=== PATIENT | female | born 1995 | race African-American/Black ===

== ENCOUNTER 2016-10-04 21:05 | Emergency (ER) | payer OTHER ==
[2016-10-04 21:20] VITALS: BP 151/107
[2016-10-04] MEDS ORDERED: Bupivacaine 0.5% W/EPI SDV* 30 ML VIAL ONE (21:44)
[2016-10-04] MEDS ORDERED: traMADol TAB* 50 MG PO ONE (22:07)
--- NOTE | 2016-10-06 08:01 | ED ---
Isreal Hinojosa SooYoung, scribed for Lee Avery MD on 10/04/16 at 2136 . 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 Associated sx: pruiritic, mild pain with BM. It is not draining. She states she once had an abscess on the side of leg that drained normally. No PMHx of DM, Crohns, ulceritis. Has not taken any pain medications. Pt notes she was constipated last week and had been straining. - History of Current Complaint Chief Complaint: EDRashSkinAbscess Time Seen by Provider: 10/04/16 21:17 Stated Complaint: ABSCESS Hx Obtained From: Patient Onset/Duration: Still Present Timing: Constant Onset Severity: Moderate Current Severity: Moderate Pain Intensity: 7 Pain Scale Used: 0-10 Numeric Skin Location: Other: - alexandra anal Character: Pruritus, Painful - Allergy/Home Medications Allergies/Adverse Reactions: Allergies Allergy/AdvReac Type Severity Reaction Status Date / Time No Known Allergies Allergy Verified 10/04/16 21:10 PMH/Surg Hx/FS Hx/Imm Hx Previously Healthy: Yes Cardiovascular History: Denies: Hx Congestive Heart Failure Sensory History: Denies: Hx Legally Blind Opthamlomology History: Denies: Hx Legally Blind Infectious Disease History: No Infectious Disease History: Denies: Traveled Outside the [place] in Last 30 Days - Family History Known Family History: Positive: Hypertension - father Negative: Cardiac Disease, Diabetes - Social History Occupation: Student Lives: Alone Review of Systems Negative: Fever, Chills Negative: Erythema Negative: Sore Throat Negative: Chest Pain Negative: Shortness Of Breath, Cough Negative: Abdominal Pain, Vomiting, Nausea Positive: pain - alexandra-anal, other - pos: mild pain with BM. Negative: dysuria, hematuria Negative: Myalgia, Edema Negative: Rash Neurological: Other - neg: dizziness All Other Systems Reviewed And Are Negative: Yes Physical Exam - Summary Physical Exam Summary: Constitutional: Well-developed, Well-nourished, Alert. (-) Distressed Skin: Warm, Dry HENT: Normocephalic; Atraumatic Eyes: Conjunctiva normal Neck: Musculoskeletal ROM normal neck. (-) JVD, (-) Stridor, (-) Tracheal deviation Cardio: Rhythm regular, rate normal, Heart sounds normal; Intact distal pulses; The pedal pulses are 2+ and symmetric. Radial pulses are 2+ and symmetric. (-) Murmur Pulmonary/Chest wall: Effort normal. (-) Respiratory distress, (-) Wheezes, (-) Rales Abd: Soft, (-) Tenderness, (-) Distension, (-) Guarding, (-) Rebound Rectal: Thrombosed hemorrhoid at 12 o'clock position. It is tense. Musculoskeletal: (-) Edema Lymph: (-) Cervical adenopathy Neuro: Alert, Oriented x3 Psych: Mood and affect Normal Triage Information Reviewed: Yes Vital Signs On Initial Exam: Initial Vitals Temp Pulse Resp BP Pulse Ox 98.2 F 71 16 151/107 100 10/04/16 21:12 10/04/16 21:12 10/04/16 21:12 10/04/16 21:12 10/04/16 21:12 Vital Signs Reviewed: Yes Procedures - Incision and Drainage Site: thrombossed external hemorrhoid. Anesthesia: Local - 0.5% bupicaine with epi injected locally into thrombosed hemorrhoid Instrument(s): Scalpel Packing: Other - none Diagnostics - Vital Signs Vital Signs Temp Pulse Resp BP Pulse Ox 10/04/16 21:12 98.2 F 71 16 151/107 100 - Laboratory Lab Statement: Any lab studies that have been ordered have been reviewed, and results considered in the medical decision making process. 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 Associated sx: pruiritic, mild pain with BM. It is not draining. No PMHx of DM, Crohns, ulceritis. Has not taken any pain medication. Upon PE, pt has a thrombosed, tense hemorrhoid. Hemorrhoid was I&D, 3mm across triagular incision made; 5 pencil eraser sized clots were manually removed; no active bleeding. Pt feels relief. Nurse present for exam and procedure. - Diagnoses Provider Diagnoses: Thrombosed external hemorrhoid Discharge - Discharge Plan Condition: Stable Disposition: HOME Patient Education Materials: Thrombosed Hemorrhoid (ED) Referrals: Non Staff,Doctor [Primary Care Provider] - [facility] [place] [facility] [Outside] Additional Instructions: As we discussed, take warm baths, use witchhazel pads, and stool softeners. Please return to the ED if you experience new or worsening symptoms. The documentation as recorded by the Isreal sood SooYoung accurately reflects the service I personally performed and the decisions made by me, Lee Avery MD.
== END 2016-10-04 22:20 | disposition home or self-care (01) ==
LOC: ED 21:05
DX: K64.5 Perianal venous thrombosis (principal)
CPT/HCPCS: 99282

== ENCOUNTER 2018-01-10 16:40 | Emergency (ER) | payer SELFPAY ==
[2018-01-10 17:06] VITALS: BP 129/95
--- NOTE | 2018-01-10 17:12 | UC ---
Complaint Female HPI - HPI Summary HPI Summary: 22 y/o female presents to the urgent care c/o vaginal discharge which she thinks it is yeast infection since last Wilder 01/07/2018. Pt states a lot of itchiness w/ her vagina swelling and a burning sensation every time she urinates. Pain on urination is 2/10. Pt hasn't been sexually active for the past 2 years. She request STD screening. Pt denies lower back pain, pelvic pain , fever. flank pain, Hx of STD's, SOB, chest pain, abdominal pain, N/v/D. - History Of Current Complaint Chief Complaint: UCGU Stated Complaint: PERSONAL Time Seen by Provider: 01/10/18 17:10 Hx Obtained From: Patient Hx Last Menstrual Period: 01/07/18 ?: No Onset/Duration: Gradual Onset, Lasting Days - 4 days, Still Present Timing: Constant Severity Initially: Mild Severity Currently: Moderate Pain Intensity: 8 - burning w/ urination Pain Scale Used: 0-10 Numeric Character: Burning Aggravating Factor(s): Urination Alleviating Factor(s): Nothing Associated Signs And Symptoms: Positive: Vaginal Discharge, Genital Swelling. Negative: Fever, Back Pain - Risk Factors Ectopic Risk Factor: Negative - Allergies/Home Medications Allergies/Adverse Reactions: Allergies Allergy/AdvReac Type Severity Reaction Status Date / Time No Known Allergies Allergy Verified 01/10/18 17:06 PMH/Surg Hx/FS Hx/Imm Hx Previously Healthy: Yes - Pt denies PMHX - Surgical History Surgical History: None - Family History Known Family History: Positive: Hypertension - father, Respiratory Disease - asthma Negative: Cardiac Disease, Diabetes - Social History Occupation: Student Lives: With Family Alcohol Use: Occasionally Substance Use Type: Marijuana Smoking Status (MU): Never Smoked Tobacco Review of Systems All Other Systems Reviewed And Are Negative: Yes Constitutional: Positive: Negative Skin: Positive: Negative Eyes: Positive: Negative ENT: Positive: Negative Respiratory: Positive: Negative Cardiovascular: Positive: Negative Gastrointestinal: Positive: Negative Genitourinary: Positive: Vaginal/Penile Itching, Vaginal/Penile Discharge, Other - vaginal irritation Motor: Positive: Negative Neurovascular: Positive: Negative Musculoskeletal: Positive: Negative Neurological: Positive: Negative Psychological: Positive: Negative Is Patient Immunocompromised?: No Physical Exam - Summary Physical Exam Summary: Vital signs: reviewed General: well developed, well nourished female adolescent sitting in the examining table w/o any acute distress. Head: Normocephalic, no lesions. Eyes: PERRLA, EOM's full, conjunctiva clear, fundi grossly normal. Ears: EAC's clear, TM's normal. Nose: Mucosa normal, no obstruction. Throat: Clear, no exudates, no lesions. Neck: Supple, no masses, no thyromegaly, no bruits. Chest: Lungs clear, no rales, no rhonchi, no wheezes. Heart: RR, no murmurs, no rubs, no gallops. Abdomen: Soft, no tenderness, no masses, BS normal. Pelvic: I was framing mechanic by Bernice. External genitalia within normal limits. There is no lesions there is no masses noted. Speculum exam: The vaginal lamar are within normal limits w/ cottage cheese white vaginal discharge, no the lesions or rashes. The cervix is closed with no lesions or masses. There is no CMT's, and no adnexal masses. Sample sent to Lab for G/C and Affirm panel. Rectal: No lesions, no hemorrhoids, Back: Normal curvature, no tenderness. Extremities: FROM, no deformities, no edema, no erythema. Neuro: Physiological, no localizing findings. Skin: Normal, no rashes, no lesions noted. Triage Information Reviewed: Yes Vital Signs: Initial Vital Signs Temp 98.2 F 01/10/18 17:00 Pulse 80 01/10/18 17:00 Resp 18 01/10/18 17:00 BP 129/95 01/10/18 17:00 Pulse Ox 98 01/10/18 17:00 Complaint Female Dx - Course Course Of Treatment: 22 y/o female presents to the urgent care c/o vaginal discharge which she thinks it is yeast infection since last Wednesday01/07/2018. Pt states a lot of itchiness w/ her vagina swelling and a burning sensation every time she urinates. Pain on urination is 2/10. Pt hasn't been sexually active for the past 2 years. She request STD screening. Pt denies lower back pain, pelvic pain, fever. flank pain, Hx of STD's, SOB, chest pain, abdominal pain, N/v/D. Hx obtained. Pt w/ a white cottage cheese vaginal discharge on pelvic examination. Pt w/ probably Vulvovaginal candidiasis. Pt Rx Fluconazole PO and chlotrimazole topical cream to alleviate symptoms. Sample sent to Lab for Affirm panel , and GC / chlamydia. Pt declined HIV and other STDs screening. Pt will be notified of result. UA: trace 1+ leuk esterase. test:negative. Advised if not improvment of symptoms to return or f/u w/ COMMUNICATIONS REPRESENTATIVE. Pt understood and agreed with plan of care. - Differential Dx/Diagnosis Differential Diagnosis/HQI/PQRI: Cervicitis, Pelvic Inflammatory Disease, Sexually Transmitted Disease Provider Diagnoses: 1- Vulvovaginal candidiasis. 2- Screening for STD's. 3- Elelvated BP w/o Hx of HTN Discharge - Sign-Out/Discharge Documenting (check all that apply): Patient Departure - D/C home All imaging exams completed and their final reports reviewed: No Studies - Discharge Plan Condition: Stable Disposition: HOME Prescriptions: Clotrimazole 1% CREAM* [Clotrimazole 1%*] 1 applic TOPICAL BEDTIME #1 tube Fluconazole 150 MG (NF) [Diflucan 150 mg (NF)] 150 mg PO ONCE #1 tab Patient Education Materials: Yeast Infection (ED), Low-Sodium Diet (ED) Referrals: No Primary Care Phys,NOPCP [Primary Care Provider] - Additional Instructions: 1-[facility] test. 2- Please take Fluconazole PO and directed to alleviate symptoms. Aplly topical cream as directed in the irritated area. 3- Specimen were sent to lab, to screen for STI, if anything abnormal you will receive a call from us for further treatment. 4-If not improvement of symptoms please return to the urgent care or f/u with your COMMUNICATIONS REPRESENTATIVE for further treatment 5-Your BP is elevated today. please decrease salt in your diet, monitor BP and if it continues to be elevated please f/u with your PCP for further management - Billing Disposition and Condition Condition: STABLE Disposition: Home
--- NOTE | 2018-01-11 17:31 | UC ---
- Progress Note Progress Note: Positive for yeast and BV. She was treated for yeast at her OV. Please let her know of the BV as well - rx for flagyl 500mg BId sent. Discharge - Sign-Out/Discharge Documenting (check all that apply): Post-Discharge Follow Up All imaging exams completed and their final reports reviewed: No Studies - Discharge Plan Condition: Stable Disposition: HOME Prescriptions: Clotrimazole 1% CREAM* [Clotrimazole 1%*] 1 applic TOPICAL BEDTIME #1 tube Fluconazole 150 MG (NF) [Diflucan 150 mg (NF)] 150 mg PO ONCE #1 tab metroNIDAZOLE [Flagyl] 500 mg PO BID #14 tablet Patient Education Materials: Yeast Infection (ED), Low-Sodium Diet (ED) Referrals: No Primary Care Phys,NOPCP [Primary Care Provider] - Additional Instructions: 1-[facility] you [facility] test. 2- Please take Fluconazole PO and directed to alleviate symptoms. Aplly topical cream as directed in the irritated area. 3- Specimen were sent to lab, to screen for STI, if anything abnormal you will receive a call from us for further treatment. 4-If not improvement of symptoms please return to the urgent care or f/u with your SUBSEA ENGINEER for further treatment 5-Your BP is elevated today. please decrease salt in your diet, monitor BP and if it continues to be elevated please f/u with your PCP for further management - Billing Disposition and Condition Condition: STABLE Disposition: Home
--- NOTE | 2018-01-12 16:20 | UC ---
- Progress Note Progress Note: 01/12/2018 GC/Chlamydia: negative Trichomonas vaginalis: negative No change Brenda Azevedo PA-C Discharge - Sign-Out/Discharge Documenting (check all that apply): Patient Departure - D/c home All imaging exams completed and their final reports reviewed: No Studies - Discharge Plan Condition: Stable Disposition: HOME Prescriptions: Clotrimazole 1% CREAM* [Clotrimazole 1%*] 1 applic TOPICAL BEDTIME #1 tube Fluconazole 150 MG (NF) [Diflucan 150 mg (NF)] 150 mg PO ONCE #1 tab metroNIDAZOLE [Flagyl] 500 mg PO BID #14 tablet Patient Education Materials: Yeast Infection (ED), Low-Sodium Diet (ED) Referrals: No Primary Care Phys,NOPCP [Primary Care Provider] - Additional Instructions: 1-[facility] test. 2- Please take Fluconazole PO and directed to alleviate symptoms. Aplly topical cream as directed in the irritated area. 3- Specimen were sent to lab, to screen for STI, if anything abnormal you will receive a call from us for further treatment. 4-If not improvement of symptoms please return to the urgent care or f/u with your PADDER CUSHION for further treatment 5-Your BP is elevated today. please decrease salt in your diet, monitor BP and if it continues to be elevated please f/u with your PCP for further management - Billing Disposition and Condition Condition: STABLE Disposition: Home
--- NOTE | 2018-01-12 17:21 | UC ---
- Progress Note Progress Note: 01/12/2018 Urinalysis:WNL, no growth No change Brenda Silva PA-C Discharge - Sign-Out/Discharge Documenting (check all that apply): Patient Departure - D/C home All imaging exams completed and their final reports reviewed: No Studies - Discharge Plan Condition: Stable Disposition: HOME Prescriptions: Clotrimazole 1% CREAM* [Clotrimazole 1%*] 1 applic TOPICAL BEDTIME #1 tube Fluconazole 150 MG (NF) [Diflucan 150 mg (NF)] 150 mg PO ONCE #1 tab metroNIDAZOLE [Flagyl] 500 mg PO BID #14 tablet Patient Education Materials: Yeast Infection (ED), Low-Sodium Diet (ED) Referrals: No Primary Care Phys,NOPCP [Primary Care Provider] - Additional Instructions: 1-[facility] test. 2- Please take Fluconazole PO and directed to alleviate symptoms. Aplly topical cream as directed in the irritated area. 3- Specimen were sent to lab, to screen for STI, if anything abnormal you will receive a call from us for further treatment. 4-If not improvement of symptoms please return to the urgent care or f/u with your INFORMATION SYSTEMS CONSULTANT for further treatment 5-Your BP is elevated today. please decrease salt in your diet, monitor BP and if it continues to be elevated please f/u with your PCP for further management - Billing Disposition and Condition Condition: STABLE Disposition: Home
== END 2018-01-10 18:02 | disposition home or self-care (01) ==
LOC: UCEAST 16:40
DX: Z11.3 Encounter for screening for infections with a predominantly sexual mode of transmission (principal); B37.3 Candidiasis of vulva and vagina; R03.0 Elevated blood-pressure reading, without diagnosis of hypertension
CPT/HCPCS: 81003; 84702; 87086; 87480; 87491; 87510; 87591; 87661; 99212; G0463

== ENCOUNTER 2018-02-04 14:44 | Emergency (ER) | payer SELFPAY ==
[2018-02-04] MEDS ORDERED: Pseudoephedrine TAB* 60 MG PO ONE (15:46)
--- NOTE | 2018-02-04 16:25 | ED ---
Throat Pain/Nasal Congestion - HPI Summary HPI Summary: Alternating ear pain past week. Was left, now right - pressure, congestion, sharp at times. Intermittent nasal congestion - denies ST, swelling, ROMERO, sneezing, coughing, fever, chills, N/V/D, ab rash. Tried ibuprofen and acetaminophen w/o relief. Home temp is very hot - roommate turns it up to "90F" - dry. No h/o strep, mono. H/o OM as a child - no myringotomies and denies allergies. - History of Current Complaint Chief Complaint: EDEarPain Time Seen by Provider: 02/04/18 14:54 Hx Obtained From: Patient - Allergies/Home Medications Allergies/Adverse Reactions: Allergies Allergy/AdvReac Type Severity Reaction Status Date / Time No Known Allergies Allergy Verified 01/10/18 17:06 Home Medications: Home Medications Cran/C/B.coag/Fos/L.acid/L.rha [Probiotic Plus & Cranberry Cap] 1 tab PO DAILY 02/04/18 [History Confirmed 02/04/18] PMH/Surg Hx/FS Hx/Imm Hx Previously Healthy: Yes Cardiovascular History: Denies: Hx Congestive Heart Failure Respiratory History: Denies: Hx Asthma Sensory History: Denies: Hx Legally Blind Opthamlomology History: Denies: Hx Legally Blind EENT History: Reports: Other - OM as child Infectious Disease History: No Infectious Disease History: Denies: Traveled Outside the [place] in Last 30 Days - Family History Known Family History: Positive: Hypertension - father, Respiratory Disease - asthma Negative: Cardiac Disease, Diabetes - Social History Occupation: Student Lives: Dormitory/Roommates Alcohol Use: Occasionally Substance Use Type: Reports: Marijuana Hx Tobacco Use: No Smoking Status (MU): Never Smoked Tobacco Review of Systems Constitutional: Negative Eyes: Negative Positive: Ear Ache, Nasal Discharge Cardiovascular: Negative Respiratory: Negative Gastrointestinal: Negative Positive: no symptoms reported Musculoskeletal: Negative Skin: Negative Neurological: Negative Psychological: Normal All Other Systems Reviewed And Are Negative: Yes Physical Exam Triage Information Reviewed: Yes Vital Signs On Initial Exam: Initial Vitals Temp Pulse Resp BP Pulse Ox 97.2 F 78 18 140/89 98 02/04/18 14:45 02/04/18 14:45 02/04/18 14:45 02/04/18 14:45 02/04/18 14:45 Vital Signs Reviewed: Yes Appearance: Positive: Well-Appearing, No Pain Distress, Well-Nourished Skin: Positive: Warm, Skin Color Reflects Adequate Perfusion, Dry - no rash Head/Face: Positive: Normal Head/Face Inspection Eyes: Positive: Normal, EOMI, Conjunctiva Clear. Negative: Conjunctiva Inflammed, Discharge ENT: Positive: Hearing grossly normal, Pharyngeal erythema - cobblestoning, Nasal congestion, TM bulging - very mild B/L - TM's clear -no erythema, no vesicles, no lesions, NTTP, no otorrhea, Uvula midline. Negative: Tonsillar swelling, Tonsillar exudate, Sinus tenderness Neck: Positive: Supple, Nontender, No Lymphadenopathy Respiratory/Lung Sounds: Positive: Clear to Auscultation, Breath Sounds Present. Negative: Rales, Rhonchi, Stridor, Tracheal Deviation, Wheezes Cardiovascular: Positive: Normal, RRR. Negative: Murmur, Rub Abdomen Description: Positive: Nontender, No Organomegaly, Soft Bowel Sounds: Positive: Present Musculoskeletal: Positive: Normal, Strength/ROM Intact Neurological: Positive: Normal, Sensory/Motor Intact, Alert, Oriented to Person Place, Time, CN Intact II-III Psychiatric: Positive: Normal Diagnostics - Vital Signs Vital Signs Temp Pulse Resp BP Pulse Ox 02/04/18 14:45 97.2 F 78 18 140/89 98 - Laboratory Lab Statement: Any lab studies that have been ordered have been reviewed, and results considered in the medical decision making process. EENT Course/Dx - Diagnoses Provider Diagnoses: Eustachian tube dysfunction Discharge - Sign-Out/Discharge Documenting (check all that apply): Patient Departure - Discharge Plan Condition: Stable Disposition: HOME Patient Education Materials: Earache (ED) Referrals: [facility] [Outside] [facility] [place] [facility] [Outside] Additional Instructions: You appear to have eustachian tube dysfunction which can lead to unilateral or bilateral ear pain and pressure. It is important that you support the structures around your eustchian tubes to allow them to open and drain in an effort to alleviate your ear pain. This may be done through the remedies listed below as well as trying Sudafed, a decongestant. You were given 1 dose of Sudafed here today. If you feel this was helpful, you may obtain more through the pharmacy [id number]. Try to take in the morning with food as it may make you feel energetic and cause difficulty sleeping if he take too close to bedtime. Do not take with caffeine. Try the following remedies: Nasal wash (netti pot or saline spray) & salt water throat gargles 2 x day Drink you body weight in ounces of water every day Sleep 8+ hours per night Avoid Dairy and sugar Hot herbal/decaf tea with lemon & honey Chicken broth (preferably organic, free range chicken) Humidifier in house, but especially near bed at night Keep home temperature at 68F or less to reduce dryness Use cough drops/throat lozenges Try a facial steam with or without eucalyptus essential oil or Prieto's Vapor rub for congestion Avoid smoke, candles, perfumes, colognes, scented soaps/detergents , air fresheners and cleaning chemicals as these can cause airway irritation and trigger coughing Start multivitamin during the winter months to support immune system *If you continue to have issues, you may follow-up with [facility], a transitional PCP service here at the hospital. Contact information provided here. Call today to schedule an appointment. *If you develop difficulty breathing or swallowing, severe headache, fever, neck stiffness, return to the ED - Billing Disposition and Condition Condition: STABLE Disposition: Home
[2018-02-04 16:30] VITALS: BP 146/106
== END 2018-02-04 16:29 | disposition home or self-care (01) ==
LOC: ED 14:44
DX: H69.93 Unspecified Eustachian tube disorder, bilateral (principal)
CPT/HCPCS: 99281; A9270-GY

== ENCOUNTER 2018-03-06 12:33 | Emergency (ER) | payer SELFPAY ==
[2018-03-06 12:41] VITALS: BP 154/96
--- NOTE | 2018-03-06 12:52 | UC ---
Abdominal Pain Female HPI - HPI Summary HPI Summary: awoke with midepigastric ruq pain this morning-has not vomited but is not hungry ---never had similar pain no recent alcohol - History of Current Complaint Chief Complaint: UCAbdominalPain Stated Complaint: ABD PAIN Time Seen by Provider: 03/06/18 12:37 Hx Obtained From: Patient Hx Last Menstrual Period: 02/25/18 ?: No Onset/Duration: Sudden Onset, Lasting Hours Timing: Constant Pain Intensity: 9 Pain Scale Used: 0-10 Numeric Location: Discrete At: RUQ, Epigastric Radiates: Yes Radiates to: Back Character: Aching, Burning Aggravating Factor(s): Nothing Alleviating Factor(s): Nothing Associated Signs and Symptoms: Positive: Back Pain, Decreased Appetite Allergies/Adverse Reactions: Allergies Allergy/AdvReac Type Severity Reaction Status Date / Time No Known Allergies Allergy Verified 03/06/18 12:40 PMH/Surg Hx/FS Hx/Imm Hx Previously Healthy: Yes - Surgical History Surgical History: None - Family History Known Family History: Positive: Hypertension - father, Respiratory Disease - asthma Negative: Cardiac Disease, Diabetes - Social History Occupation: Employed Part-time Lives: Dormitory/Roommates Alcohol Use: Occasionally Substance Use Type: Marijuana Smoking Status (MU): Never Smoked Tobacco Review of Systems All Other Systems Reviewed And Are Negative: Yes Constitutional: Positive: Fever - subjective Skin: Positive: Negative Eyes: Positive: Negative ENT: Positive: Negative Respiratory: Positive: Negative Cardiovascular: Positive: Negative Gastrointestinal: Positive: Abdominal Pain, Nausea Genitourinary: Positive: Negative Motor: Positive: Negative Neurovascular: Positive: Negative Musculoskeletal: Positive: Negative Neurological: Positive: Negative Psychological: Positive: Negative Is Patient Immunocompromised?: No Physical Exam Triage Information Reviewed: Yes Appearance: Well-Nourished, Ill-Appearing, Pain Distress Vital Signs: Initial Vital Signs Temp 99.5 F 03/06/18 12:37 Pulse 82 03/06/18 12:37 Resp 20 03/06/18 12:37 BP 154/96 03/06/18 12:37 Vital Signs Reviewed: Yes Eye Exam: Normal Eyes: Positive: Conjunctiva Clear ENT Exam: Normal ENT: Positive: Normal ENT inspection, Hearing grossly normal. Negative: Nasal congestion, Trismus, Muffled voice, Hoarse voice Dental Exam: Normal Neck exam: Normal Neck: Positive: Supple, Nontender Respiratory Exam: Normal Respiratory: Positive: Chest non-tender, No respiratory distress, No accessory muscle use Cardiovascular Exam: Normal Cardiovascular: Positive: RRR, Pulses Normal, Brisk Capillary Refill Abdominal Exam: Other Abdomen Description: Positive: No Organomegaly, Soft, Other: - RUQ pain rediating in to back. Negative: CVA Tenderness (R), CVA Tenderness (L), Distended, Guarding, Hepatomegaly, McBurney's Point Tenderness, Peritoneal Signs , Pulsatile Mass Bowel Sounds: Positive: Present Musculoskeletal Exam: Normal Musculoskeletal: Positive: Strength Intact, ROM Intact, No Edema Neurological Exam: Normal Neurological: Positive: Alert, Muscle Tone Normal Psychological Exam: Normal Skin Exam: Normal Diagnostics - Laboratory Diagnostic Studies Completed/Ordered: ua-+3 leukoesterace, no blood, u pre (-) Abd Pain Female Course/Dx - Course Course Of Treatment: ivf zofran morpine, npo to [facility] [place] via ambulance-- - Differential Dx/Diagnosis Provider Diagnosis: Abdominal pain, acute, right upper quadrant Discharge - Sign-Out/Discharge Documenting (check all that apply): Patient Departure All imaging exams completed and their final reports reviewed: No Studies - Discharge Plan Condition: Fair Disposition: TRANS HIGHER LVL OF CARE FAC Referrals: No Primary Care Phys,NOPCP [Primary Care Provider] - - Billing Disposition and Condition Condition: FAIR Disposition: Trans Higher Lvl of Care Fac
[2018-03-06] MEDS ORDERED: Ondansetron INJ* 2 MG/ML VIAL IV ONE (12:53)
[2018-03-06] MEDS ORDERED: Morphine VIAL* 10 MG/ML 1 ML VIAL IV ONE (12:53)
[2018-03-06] MEDS ORDERED: NS 0.9% 1000 ML* 1,000 ML IV SCH (13:00)
== END 2018-03-06 13:20 | disposition short-term general hospital (02) ==
LOC: UCEAST 12:33
DX: R10.11 Right upper quadrant pain (principal)
CPT/HCPCS: 81003; 84702; 87086; 96374; 96376; 99213; G0463; J2270; J2405

== ENCOUNTER 2018-03-06 13:41 | Emergency (ER) | payer SELFPAY ==
[2018-03-06] MEDS ORDERED: Al Hydrox/Mg Hydrox/Simet LIQ* 30 ML UDC PO ONE (14:02)
[2018-03-06] MEDS ORDERED: Famotidine IV* 10 MG/ML 2 ML (20 mg) IV SLOW PU ONE (14:02)
[2018-03-06 14:53] LABS: Hematocrit 32 % (35-47); Hemoglobin 10.2 g/dl (12.0-16.0); Mean Corpuscular HGB Conc 32 g/dl (31-36); Mean Corpuscular Hemoglobin 22 pg (27-31); Mean Corpuscular Volume 70 fL (80-97); Mean Platelet Volume 8.9 fL (7.4-10.4); Platelet Count 201 10^3/ul (150-450); Red Blood Count 4.57 10^6/ul (4.00-5.40); Red Cell Distribution Width 19 % (10.5-15); White Blood Count 7.8 10^3/ul (3.5-10.8)
[2018-03-06 15:04] LABS: ALT 12 U/L (7-52); AST 15 U/L (13-39); Albumin 3.9 g/dL (3.2-5.2); Albumin/Globulin Ratio 1.2 (1-3); Alkaline Phosphatase 63 U/L (34-104); Amylase 63 U/L (29-103); Anion Gap 6 mmol/L (2-11); BUN/Creatinine Ratio 7.7 (8-20); Blood Urea Nitrogen 5 mg/dL (6-24); C Reactive Protein 7.74 mg/L (<8.01); CO2 Carbon Dioxide 26 mmol/L (22-32); Calcium 8.9 mg/dL (8.6-10.3); Chloride 107 mmol/L (101-111); Globulin 3.3 g/dL (2-4); Glucose 96 mg/dL (70-100); Magnesium 1.9 mg/dL (1.9-2.7); Potassium 3.5 mmol/L (3.5-5.0); Sodium 139 mmol/L (135-145); Total Protein 7.2 g/dL (6.4-8.9)
[2018-03-06 15:09] LABS: HCG Pregnancy < 0.60 mIU/mL
[2018-03-06 15:34] LABS: ABS Basophils 0.1 10^3/ul (0-0.2); ABS Eosinophils 0 10^3/ul (0-0.6); ABS Lymphocytes 1.1 10^3/ul (1.0-4.8); ABS Monocytes 0.5 10^3/ul (0-0.8); ABS Neutrophils 6.1 10^3/ul (1.5-7.7); ABS Nucleated RBC 0 10^3/ul; Eosinophil % 0.4 %; Lymphocyte % 14.6 %; Nucleated Red Blood Cells % 0
[2018-03-06 15:51] VITALS: BP 124/101
--- NOTE | 2018-03-06 16:14 | ED ---
Abdominal Pain/Female - HPI Summary HPI Summary: Patient is a 23-year-old female with no significant PMH presenting to the ED with acute onset of mid epigastric pain since 4 AM. She states she ate some cereal at 1 AM just prior to going to bed. Pain is currently rated a 5/10, aching and burning. She has never had this before. She denies any abdominal surgeries. Denies any urinary symptoms, abdominal pain. Otherwise, back pain, nausea, vomiting, diarrhea, constipation. She takes no medications. Denies any allergies. - History of Current Complaint Chief Complaint: EDAbdPain Stated Complaint: ABD PAIN Time Seen by Provider: 03/06/18 13:54 Hx Obtained From: Patient Hx Last Menstrual Period: 02/25/18 ?: No Onset/Duration: Sudden Onset Timing: Constant Severity Initially: Moderate Severity Currently: Moderate Pain Intensity: 0 Pain Scale Used: 0-10 Numeric Location: Epigastric Radiates: No Character: Burning, Other: - aching Alleviating Factor(s): Nothing Associated Signs and Symptoms: Positive: Negative - Risk Factors Ectopic Risk Factor: Negative Ovarian Torsion Risk Factor: Negative Allergies/Adverse Reactions: Allergies Allergy/AdvReac Type Severity Reaction Status Date / Time No Known Allergies Allergy Verified 03/06/18 12:40 PMH/Surg Hx/FS Hx/Imm Hx Previously Healthy: Yes Endocrine/Hematology History: Denies: Hx Diabetes, Hx Thyroid Disease Cardiovascular History: Denies: Hx Congestive Heart Failure, Hx Hypertension Respiratory History: Denies: Hx Asthma, Hx Chronic Obstructive Pulmonary Disease (COPD) GI History: Denies: Hx Ulcer Sensory History: Denies: Hx Legally Blind Opthamlomology History: Denies: Hx Legally Blind - Immunization History Hx Pertussis Vaccination: No Immunizations Up to Date: Yes Infectious Disease History: No Infectious Disease History: Denies: Hx Hepatitis, Hx Human Immunodeficiency Virus (HIV), Traveled Outside the [place] in Last 30 Days - Family History Known Family History: Positive: Hypertension - father, Respiratory Disease - asthma Negative: Cardiac Disease, Diabetes - Social History Occupation: Employed Full-time Lives: With Family Alcohol Use: Occasionally Hx Substance Use: Yes Substance Use Type: Reports: Marijuana Hx Tobacco Use: No Smoking Status (MU): Never Smoked Tobacco Review of Systems Negative: Fever, Chills, Fatigue, Skin Diaphoresis Negative: Palpitations, Chest Pain Negative: Shortness Of Breath, Cough Positive: Abdominal Pain - epigastric tenderness. Negative: Vomiting, Diarrhea Negative: Arthralgia, Myalgia Skin: Negative Neurological: Negative All Other Systems Reviewed And Are Negative: Yes Physical Exam Triage Information Reviewed: Yes Vital Signs On Initial Exam: Initial Vitals Temp Pulse Resp BP Pulse Ox 97.8 F 78 19 146/105 100 03/06/18 13:42 03/06/18 13:42 03/06/18 13:42 03/06/18 13:42 03/06/18 13:42 Vital Signs Reviewed: Yes Appearance: Positive: Well-Appearing, Well-Nourished Skin: Positive: Warm, Skin Color Reflects Adequate Perfusion Head/Face: Positive: Normal Head/Face Inspection Eyes: Positive: EOMI, LEBRON, Conjunctiva Clear Neck: Positive: Supple, No Lymphadenopathy Respiratory/Lung Sounds: Positive: Clear to Auscultation, Breath Sounds Present Cardiovascular: Positive: RRR, Pulses are Symmetrical in both Upper and Lower Extremities Musculoskeletal: Positive: Normal - no, Strength/ROM Intact Neurological: Positive: Speech Normal Psychiatric: Positive: Normal, Affect/Mood Appropriate AVPU Assessment: Alert Diagnostics - Vital Signs Vital Signs Temp Pulse Resp BP Pulse Ox 03/06/18 15:48 97 F 77 20 124/101 100 03/06/18 14:46 75 20 146/95 100 03/06/18 14:22 97.8 F 59 16 122/87 100 03/06/18 14:16 72 18 132/99 100 03/06/18 13:46 70 18 149/105 100 03/06/18 13:42 97.8 F 78 19 146/105 100 - Laboratory Lab Results: Lab Results 03/06/18 03/06/18 03/06/18 Range/Units 13:35 13:35 13:35 WBC 7.8 (3.5-10.8) 10^3/ul RBC 4.57 (4.00-5.40) 10^6/ul Hgb 10.2 L (12.0-16.0) g/dl Hct 32 L (35-47) % MCV 70 L (80-97) fL MCH 22 L (27-31) pg MCHC 32 (31-36) g/dl RDW 19 H (10.5-15) % Plt Count 201 (150-450) 10^3/ul MPV 8.9 (7.4-10.4) fL Neut % (Auto) 77.4 % Lymph % (Auto) 14.6 % [place] % (Auto) 6.9 % Eos % (Auto) 0.4 % Baso % (Auto) 0.7 % Absolute Neuts (auto) 6.1 (1.5-7.7) 10^3/ul Absolute Lymphs (auto) 1.1 (1.0-4.8) 10^3/ul Absolute Monos (auto) 0.5 (0-0.8) 10^3/ul Absolute Eos (auto) 0 (0-0.6) 10^3/ul Absolute Basos (auto) 0.1 (0-0.2) 10^3/ul Absolute Nucleated RBC 0 10^3/ul Nucleated RBC % 0 Hypochromasia 1+ Anisocytosis 1+ Sodium 139 (135-145) mmol/L Potassium 3.5 (3.5-5.0) mmol/L Chloride 107 (101-111) mmol/L Carbon Dioxide 26 (22-32) mmol/L Anion Gap 6 (2-11) mmol/L BUN 5 L (6-24) mg/dL Creatinine 0.65 (0.51-0.95) mg/dL Est GFR ( Amer) 137.9 (>60) Est GFR (Non-Af Amer) 114.0 (>60) BUN/Creatinine Ratio 7.7 L (8-20) Glucose 96 (70-100) mg/dL Lactic Acid 0.6 (0.5-2.0) mmol/L Calcium 8.9 (8.6-10.3) mg/dL Magnesium 1.9 (1.9-2.7) mg/dL Total Bilirubin 0.30 (0.2-1.0) mg/dL AST 15 (13-39) U/L ALT 12 (7-52) U/L Alkaline Phosphatase 63 (34-104) U/L C-Reactive Protein 7.74 (<8.01) mg/L Total Protein 7.2 (6.4-8.9) g/dL Albumin 3.9 (3.2-5.2) g/dL Globulin 3.3 (2-4) g/dL Albumin/Globulin Ratio 1.2 (1-3) Amylase 63 (29-103) U/L Lipase < 10 L (11.0-82.0) U/L Beta HCG, Quant < 0.60 mIU/mL Result Diagrams: 03/06/18 13:35 03/06/18 13:35 Lab Statement: Any lab studies that have been ordered have been reviewed, and results considered in the medical decision making process. Abdominal Pain Fem Course/Dx - Course Course Of Treatment: Patient is evaluated for midepigastric tenderness. On physical examination, patient appears well, nondiaphoretic, nontoxic in appearing and vital signs are stable. Lungs CTA. RRR. No tenderness over McBurney's point, negative Rovsing sign, negative Howard sign. She is nontender to all 4 quadrants, however, is tender to to the epigastric region. Negative CVA tenderness bilaterally. Labs obtained which showed no elevations in bilirubin or LFTs. I do not believe she has a gallbladder pathology. This is likely secondary to excess acid production and gastritis. She is given Maalox plus and famotidine IV while in the ED. She states symptoms have resolved. However, patient is concerned. Symptoms will remain tomorrow or the next day and is requesting a note for work. She is given a prescription for omeprazole and is encouraged. [id number] Maalox for any breakthrough pain. Discussed refraining from ibuprofen and other NSAIDs, as well as ascitic juices and foods at this time. She understands to return if she develops any worsening symptoms. She is asymptomatic at the time of discharge. - Diagnoses Provider Diagnoses: Acute epigastric pain Discharge - Sign-Out/Discharge Documenting (check all that apply): Patient Departure - Discharge Plan Condition: Critical Disposition: HOME Prescriptions: Omeprazole 20 mg PO DAILY #20 capsule. Patient Education Materials: Epigastric Pain (ED) Forms: *Work Release Referrals: No Primary Care Phys,NOPCP [Primary Care Provider] - Additional Instructions: Buy over the counter maalox plus - take this up to every 4 hours for breakthrough epigastric pain. Omeprazole 20mg once daily x 20 days If you develop worsening symptoms - return to the ED - Billing Disposition and Condition Condition: CRITICAL Disposition: Home
== END 2018-03-06 15:48 | disposition home or self-care (01) ==
LOC: ED 13:41
DX: R10.13 Epigastric pain (principal)
CPT/HCPCS: 36415; 80053; 82150; 83605; 83690; 83735; 84702; 85025; 86140; 96374; 99282; A9270-GY

== ENCOUNTER 2018-07-19 19:20 | Emergency (ER) | payer SELFPAY ==
[2018-07-19 19:44] VITALS: BP 147/97
[2018-07-19] MEDS ORDERED: Ibuprofen TAB* 600 MG PO ONE (19:49)
[2018-07-19] MEDS ORDERED: Amoxicillin/Clavulanate TAB* 875 MG PO ONE (20:53)
--- NOTE | 2018-07-19 20:55 | UC ---
Throat Pain/Nasal Will HPI - HPI Summary HPI Summary: 23 yo female presents with 2 days of sinus pain/pressure/congestion, sore throat , dry cough, and fatigue. Today she felt feverish so she took some ibuprofen, but had no change in her symptoms. As the day has progressed today she has felt more fatigued and just wants to sleep. She has a decreased appetite, but denies SOB, chest pain, abdominal pain, n/v/d, dysuria. - History of Current Complaint Chief Complaint: UCGeneralIllness Stated Complaint: FEVER, AND SORE THROAT Time Seen by Provider: 07/19/18 20:52 Hx Obtained From: Patient Hx Last Menstrual Period: 07/06 Onset/Duration: Gradual Onset Severity: Moderate Pain Intensity: 7 Pain Scale Used: 0-10 Numeric Cough: Nonproductive - Allergies/Home Medications Allergies/Adverse Reactions: Allergies Allergy/AdvReac Type Severity Reaction Status Date / Time No Known Allergies Allergy Verified 07/19/18 19:44 Home Medications: Home Medications Ibuprofen TAB* [Advil TAB*] 400 mg PO ONCE PRN 07/19/18 [History Confirmed 07/19] Naproxen Sodium [Aleve] 220 mg PO ONCE PRN 07/19/18 [History Confirmed 07/19/18] PMH/Surg Hx/FS Hx/Imm Hx - Additional Past Medical History Additional PMH: None - Surgical History Surgical History: None - Family History Known Family History: Positive: Hypertension - father, Respiratory Disease - asthma Negative: Cardiac Disease, Diabetes - Social History Occupation: Employed Full-time Lives: With Family Alcohol Use: Occasionally Substance Use Type: Marijuana Smoking Status (MU): Never Smoked Tobacco Review of Systems All Other Systems Reviewed And Are Negative: Yes Constitutional: Positive: Fever, Fatigue, Other - Body aches Eyes: Positive: Negative ENT: Positive: Sore Throat, Sinus Congestion, Sinus Pain/Tenderness Respiratory: Positive: Cough Cardiovascular: Positive: Negative Gastrointestinal: Positive: Negative Genitourinary: Positive: Negative Neurovascular: Positive: Negative Neurological: Positive: Headache Psychological: Positive: Negative Physical Exam - Summary Physical Exam Summary: GENERAL: NAD. WDWN. No pain distress. SKIN: No rashes, sores, lesions, or open wounds. HEENT: Head: AT/NC Eyes: EOM intact. Conjunctiva clear without inflammation or discharge. Ears: Hearing grossly normal. TMs intact, no bulging, erythema, or edema. Nose: Nasal mucosa pink and moist. NTTP maxillary and frontal sinus. Throat: Posterior oropharynx mild erythema and 2+ tonsillar enlargement. No exudates. Uvula midline. No hoarse voice or muffled voice. NECK: Supple. Nontender. No lymphadenopathy. CHEST: CTAB. No r/r/w. No accessory muscle use. Breathing comfortably and in no distress. CV: RRR. Without m/r/g. Pulses intact. Cap refill <2seconds ABDOMEN: Soft. NTTP. No distention or guarding. No CVA tenderness. Bowel sounds present NEURO: Alert. PSYCH: Age appropriate behavior. Triage Information Reviewed: Yes Vital Signs: Initial Vital Signs Temp 102 F 07/19/18 19:41 Pulse 91 07/19/18 19:41 Resp 16 07/19/18 19:41 BP 147/97 07/19/18 19:41 Pulse Ox 100 07/19/18 19:41 Vital Signs Reviewed: Yes Throat Pain/Nasal Course/Dx - Course Course Of Treatment: POC strep and flu negative. Suspect viral illness and discussed viral vs bacterial origin with pt - she prefers to be on antibiotics at this time. Will draw for CBC, CMP, and mono to further evaluate flu-like illness. - Differential Dx/Diagnosis Provider Diagnosis: Flu-like symptoms Discharge - Sign-Out/Discharge Documenting (check all that apply): Patient Departure All imaging exams completed and their final reports reviewed: No Studies - Discharge Plan Condition: Stable Disposition: HOME Prescriptions: Amoxicillin/Clavulanate TAB* [Augmentin TAB 875*] 875 mg PO BID #14 tab Patient Education Materials: Tonsillitis (ED) Forms: *Work Release Referrals: No Primary Care Phys,NOPCP [Primary Care Provider] - Additional Instructions: If you develop a fever, shortness of breath, chest pain, new or worsening symptoms - please call your PCP or go to the ED immediately. Your blood pressure was high at todays visit. Please see your primary provider within 4 weeks for recheck and re-evaluation. Please continue taking tylenol alternating with ibuprofen for your fever and discomfort Rest and drink plenty of fluids If your symptoms worsen - please go to the ER. - Billing Disposition and Condition Condition: STABLE Disposition: Home
[2018-07-19 21:13] LABS: Influenza A Molecular NEGATIVE (Negative); Influenza B Molecular NEGATIVE (Negative)
[2018-07-19] MEDS ORDERED: Acetaminophen TAB* 325 MG PO ONE (21:31)
[2018-07-20 11:49] LABS: Albumin 4.2 g/dL (3.2-5.2); Calcium 9.1 mg/dL (8.6-10.3); Potassium 3.6 mmol/L (3.5-5.0); Total Bilirubin 0.5 mg/dL (0.2-1.0)
[2018-07-20 11:55] LABS: Albumin/Globulin Ratio 1.5 (1-3); BUN/Creatinine Ratio 9.6 (8-20); EGFR African American 120.6 (>60); EGFR Non-African American 99.7 (>60); Globulin 2.8 g/dL (2-4)
[2018-07-20 11:59] LABS: Hematocrit 30 % (35-47); Hemoglobin 9.7 g/dL (12.0-16.0); Mean Corpuscular HGB Conc 32 g/dL (31-36); Mean Corpuscular Hemoglobin 23 pg (27-31); Mean Corpuscular Volume 70 fL (80-97); Mean Platelet Volume 9.9 fL (7.4-10.4); Platelet Count 160 10^3/uL (150-450); Red Blood Count 4.31 10^6 /uL (3.70-4.87); Red Cell Distribution Width 17 % (10.5-15)
[2018-07-20 12:48] LABS: ABS Neutrophils 4.3 10^3/ul (1.5-7.7)
[2018-07-20 12:49] LABS: ABS Eosinophils 0.1 10^3/ul (0-0.6)
--- NOTE | 2018-07-20 15:21 | UC ---
- Progress Note Progress Note: please notify patient that is is anemic and should follow up with her provider Course/Dx - Diagnoses Provider Diagnoses: Flu-like symptoms Discharge - Sign-Out/Discharge Documenting (check all that apply): Post-Discharge Follow Up All imaging exams completed and their final reports reviewed: No Studies - Discharge Plan Condition: Stable Disposition: HOME Prescriptions: Amoxicillin/Clavulanate TAB* [Augmentin TAB 875*] 875 mg PO BID #14 tab Patient Education Materials: Tonsillitis (ED) Forms: *Work Release Referrals: No Primary Care Phys,NOPCP [Primary Care Provider] - Additional Instructions: If you develop a fever, shortness of breath, chest pain, new or worsening symptoms - please call your PCP or go to the ED immediately. Your blood pressure was high at todays visit. Please see your primary provider within 4 weeks for recheck and re-evaluation. Please continue taking tylenol alternating with ibuprofen for your fever and discomfort Rest and drink plenty of fluids If your symptoms worsen - please go to the ER. - Billing Disposition and Condition Condition: STABLE Disposition: Home
== END 2018-07-19 22:00 | disposition home or self-care (01) ==
LOC: UCEAST 19:20
DX: R09.81 Nasal congestion (principal); R50.9 Fever, unspecified; J02.9 Acute pharyngitis, unspecified; R05 Cough; R53.83 Other fatigue; R51 Headache; D64.9 Anemia, unspecified
CPT/HCPCS: 36415; 80053; 85025; 85060; 86308; 86703; 87651; 99213; A9270-GY; G0463